=== PATIENT | male | born 1975 | race Two or more races ===

== ENCOUNTER 2017-08-25 21:30 | Inpatient (IN) | payer OTHER ==
[~2017-08-25] VITALS: Ht 190.5 cm; Wt 110.5 kg
[2017-08-25 21:57] LABS: HEMATOCRIT 39.2 % (38.0-50.0); HEMOGLOBIN 14.3 G/DL (12.5-16.6); MCH 31.1 PG (29.0-34.0); MCHC 36.5 G/DL (30.0-36.0); MCV 85.2 FL (86-99); PLATELET COUNT 326 K/uL (156-360); RBC DIS.WIDTH-CV 12.1 % (11.8-14.6); RBC DIS.WIDTH-SD 37.7 % (39-53); WHITE BLOOD COUNT 15.3 K/uL (4.1-10.2)
[2017-08-25 22:07] LABS: ALBUMIN 4.2 g/dL (3.2-4.8); CHLORIDE 108 mEq/L (99-109); POTASSIUM 3.7 mEq/L (3.7-5.4); SODIUM 141 mEq/L (136-147)
[2017-08-25 22:10] LABS: GLUCOSE 154 mg/dL (70-99); TOTAL PROTEIN 7.5 g/dL (6.4-8.3)
[2017-08-25 22:11] LABS: TOTAL BILIRUBIN 0.2 mg/dL (0.0-1.0)
[2017-08-25 22:13] LABS: ALKALINE PHOSPHATASE 88 IU/L (3-129); CREATININE 1.1 mg/dL (0.6-1.3); GFR ESTIMATE (CALCULATED) > 59 mL/min/ (58.99-99999)
[2017-08-25 22:14] LABS: UREA NITROGEN (BUN) 14 mg/dL (9-23)
[2017-08-25 22:15] LABS: AST (GOT) 18 IU/L (2-34); DIRECT BILIRUBIN 0.1 mg/dL (0.0-0.3)
[2017-08-25 22:16] LABS: ALT (GPT) 31 IU/L (3-49)
[2017-08-25 22:17] LABS: LIPASE 109 U/L (1.0-51.0)
[2017-08-25] MEDS ORDERED: DEPAKOTE500 MG PO (23:25)
[2017-08-25] MEDS ORDERED: BACLOFEN10 MG PO (23:27)
[2017-08-25] MEDS ORDERED: NEURONTIN600 MG PO (23:28)
[2017-08-26 01:31] LABS: HEMATOCRIT 39.2 % (38.0-50.0); MCV 87.1 FL (86-99)
[2017-08-26 02:42] VITALS: BP 129/84
[2017-08-26 06:47] LABS: ALBUMIN 4.1 G/DL (3.2-4.8); ALKALINE PHOSPHATASE 51 IU/L (3-129); ALT (GPT) 22 IU/L (3-49); AST (GOT) 15 IU/L (2-34); CHLORIDE 110 MEQ/L (99-109); CREATININE 0.9 MG/DL (0.6-1.3); DIRECT BILIRUBIN 0.1 mg/dL (0.0-0.3); GFR ESTIMATE (CALCULATED) > 59 mL/min/ (58.99-99999); POTASSIUM 4.2 MEQ/L (3.7-5.4); SODIUM 139 MEQ/L (136-147); TOTAL BILIRUBIN 0.4 MG/DL (0.0-1.0); TOTAL PROTEIN 6.7 G/DL (6.4-8.3); UREA NITROGEN (BUN) 11 mg/dL (9-23)
[2017-08-26 06:50] LABS: GLUCOSE 100 mg/dL (70-99)
[2017-08-26 07:34] LABS: HEMATOCRIT 41.2 % (38.0-50.0); HEMOGLOBIN 14.5 G/DL (12.5-16.6); MCH 30.7 PG (29.0-34.0); MCHC 35.2 G/DL (30.0-36.0); MCV 87.3 FL (86-99); PLATELET COUNT 290 K/uL (156-360); RBC DIS.WIDTH-CV 12.3 % (11.8-14.6); RBC DIS.WIDTH-SD 39.5 % (39-53); RED BLOOD COUNT 4.72 M/uL (4.00-5.50); WHITE BLOOD COUNT 17.1 K/uL (4.1-10.2)
[2017-08-26 07:50] VITALS: BP 128/75
[2017-08-26 10:33] LABS: LIPASE 65 U/L (1.0-51.0)
[2017-08-26 12:02] VITALS: BP 136/77
[2017-08-26 12:13] LABS: HEMOGLOBIN 13.5 G/DL (12.5-16.6); MCV 88.2 FL (86-99)
[2017-08-26 16:06] VITALS: BP 146/84
[2017-08-26 16:35] LABS: APPEARANCE CLEAR ((CLEAR)); BILIRUBIN NEGATIVE; BLOOD NEGATIVE; COLOR YELLOW ((YELLOW)); GLUCOSE (STRIP) NEGATIVE; KETONES NEGATIVE; LEUKOCYTES NEGATIVE; NITRITE NEGATIVE; PROTEIN (STRIP) NEGATIVE; SPECIFIC GRAVITY 1.029 (1.000-1.030); UCUL ADDED? NO; UROBILINOGEN 0.2 MG/DL (0.2-1.0)
[2017-08-26 18:17] LABS: HEMATOCRIT 37.7 % (38.0-50.0); MCV 87.9 FL (86-99)
[2017-08-26 19:41] VITALS: BP 126/62
[2017-08-27] VITALS (7 sets, daily range): BP systolic 136–191; BP diastolic 81–95
[2017-08-27 07:37] LABS: BASOPHIL (%) 0.4 % (0-1); EOSINOPHIL COUNT 0.3 K/uL (0-0.3); HEMATOCRIT 39.8 % (38.0-50.0); IMMATURE GRANULOCYTE (%) 0.2 % (0.0-0.7); LYMPHOCYTE (%) 37.3 % (15-42); LYMPHOCYTE COUNT 3.4 K/uL (1.0-2.8); MCH 30.8 PG (29.0-34.0); MCHC 35.2 G/DL (30.0-36.0); MCV 87.5 FL (86-99); MONOCYTE (%) 8.1 % (3-12); MONOCYTE COUNT 0.7 K/uL (0-0.8); NEUTROPHIL COUNT 4.7 K/uL (1.8-6.4); PLATELET COUNT 245 K/uL (156-360); RBC DIS.WIDTH-CV 12.5 % (11.8-14.6); RBC DIS.WIDTH-SD 39.8 % (39-53); RED BLOOD COUNT 4.55 M/uL (4.00-5.50); WHITE BLOOD COUNT 9.2 K/uL (4.1-10.2)
[2017-08-27 07:42] LABS: ALBUMIN 4.1 G/DL (3.2-4.8); ALKALINE PHOSPHATASE 45 IU/L (3-129); ALT (GPT) 20 IU/L (3-49); AST (GOT) 16 IU/L (2-34); CHLORIDE 106 MEQ/L (99-109); CREATININE 0.7 MG/DL (0.6-1.3); DIRECT BILIRUBIN 0.1 mg/dL (0.0-0.3); GFR ESTIMATE (CALCULATED) > 59 mL/min/ (58.99-99999); GLUCOSE 136 mg/dL (70-99); LIPASE 60 U/L (1.0-51.0); POTASSIUM 3.8 MEQ/L (3.7-5.4); SODIUM 139 MEQ/L (136-147); TOTAL PROTEIN 6.8 G/DL (6.4-8.3); UREA NITROGEN (BUN) 4 mg/dL (9-23)
[2017-08-27 07:44] LABS: TOTAL BILIRUBIN 0.6 MG/DL (0.0-1.0)
[2017-08-27] MEDS ORDERED: DEPAKOTE250 MG PO (11:37)
[2017-08-27] MEDS ORDERED: INDERAL10 MG PO (11:42)
[2017-08-28] VITALS: BP 147/88
[2017-08-28 04:00] VITALS: BP 132/79
[2017-08-28 06:42] LABS: HEMATOCRIT 39.3 % (38.0-50.0); HEMOGLOBIN 13.6 G/DL (12.5-16.6); MCH 30.2 PG (29.0-34.0); MCHC 34.6 G/DL (30.0-36.0); MCV 87.3 FL (86-99); PLATELET COUNT 286 K/uL (156-360); RBC DIS.WIDTH-CV 12.1 % (11.8-14.6); RBC DIS.WIDTH-SD 38.9 % (39-53)
[2017-08-28 07:01] LABS: CHLORIDE 104 MEQ/L (99-109); POTASSIUM 3.8 MEQ/L (3.7-5.4); SODIUM 141 MEQ/L (136-147)
[2017-08-28 07:24] LABS: ALBUMIN 4.1 G/DL (3.2-4.8); ALKALINE PHOSPHATASE 45 IU/L (3-129); ALT (GPT) 22 IU/L (3-49); AST (GOT) 17 IU/L (2-34); CREATININE 0.6 MG/DL (0.6-1.3); GFR ESTIMATE (CALCULATED) > 59 mL/min/ (58.99-99999); TOTAL BILIRUBIN 0.6 MG/DL (0.0-1.0); UREA NITROGEN (BUN) 5 mg/dL (9-23)
[2017-08-28 07:26] LABS: GLUCOSE 93 mg/dL (70-99)
[2017-08-28 07:35] VITALS: BP 145/82
[2017-08-28 09:20] VITALS: BP 145/82
[2017-08-28] MEDS ORDERED: KEPPRA750 MG PO (13:21)
[2017-08-28] MEDS ORDERED: TUMS500 MG PO (13:21)
[2017-08-28] MEDS ORDERED: PROTONIX40 MG PO ×2 (13:21→13:29)
== END 2017-08-28 14:21 | DRG 378 ==
LOC: EME → EDBD 21:30 → EDOF 08-26 01:28 → 5SOUTH 08-26 01:28 → ENRESERV 08-26 01:34 → 5SOUTH 08-26 02:26
PROVIDERS: Emergency Medicine; Hospitalist; Internal Medicine Gastroenterology
PROC: 0DJ08ZZ Inspection of Upper Intestinal Tract, Via Natural or Artificial Opening Endoscopic (ICD-10-PCS; principal; 2017-08-26)
PROC: 0DC68ZZ Extirpation of Matter from Stomach, Via Natural or Artificial Opening Endoscopic (ICD-10-PCS; 2017-08-27)
DX: K92.0 Hematemesis (principal); K25.4 Chronic or unspecified gastric ulcer with hemorrhage; T18.2XXA Foreign body in stomach, initial encounter; F43.10 Post-traumatic stress disorder, unspecified; I47.1 Supraventricular tachycardia; G40.919 Epilepsy, unspecified, intractable, without status epilepticus; F43.20 Adjustment disorder, unspecified; K76.0 Fatty (change of) liver, not elsewhere classified; S01.512A Laceration without foreign body of oral cavity, initial encounter; D72.829 Elevated white blood cell count, unspecified; G89.29 Other chronic pain; M54.9 Dorsalgia, unspecified; Z80.0 Family history of malignant neoplasm of digestive organs; Z86.010 Personal history of colon polyps; E66.9 Obesity, unspecified; Z68.30 Body mass index [BMI] 30.0-30.9, adult; Z87.11 Personal history of peptic ulcer disease; Z86.73 Personal history of transient ischemic attack (TIA), and cerebral infarction without residual deficits; Z79.899 Other long term (current) drug therapy; Z88.6 Allergy status to analgesic agent
CPT/HCPCS: 71045; 71260; 74018; 74177; 76705; 80048; 80053; 80076; 81003; 82140; 82248; 82272; 83605; 83690; 85014; 85018; 85025; 85027; 85610; 86850; 86900; 86901; 88300; 95819; 99281; 99285; C9113; J0330; J1170; J1953; J2060; J2250; J2765; J3010; J7030; J7050

== ENCOUNTER 2017-08-28 18:13 | Inpatient (IN) | payer OTHER ==
[~2017-08-28] VITALS: Ht 188 cm; Wt 106.8 kg
[~2017-08-28 18:13] MED LIST: BACLOFEN10 MG PO; DEPAKOTE250 MG PO; DEPAKOTE500 MG PO; INDERAL10 MG PO; KEPPRA750 MG PO; NEURONTIN600 MG PO; PROTONIX40 MG PO; TUMS500 MG PO
[2017-08-28 18:55] LABS: BASOPHIL (%) 0.6 % (0-1); BASOPHIL COUNT 0.1 K/uL (0-0.1); EOSINOPHIL (%) 0.5 % (0-5); EOSINOPHIL COUNT 0.1 K/uL (0-0.3); HEMATOCRIT 41.1 % (38.0-50.0); HEMOGLOBIN 14.6 G/DL (12.5-16.6); IMMATURE GRANULOCYTE (%) 0.3 % (0.0-0.7); LYMPHOCYTE (%) 18.3 % (15-42); LYMPHOCYTE COUNT 2.2 K/uL (1.0-2.8); MCH 31.1 PG (29.0-34.0); MCHC 35.5 G/DL (30.0-36.0); MCV 87.6 FL (86-99); MONOCYTE (%) 8.9 % (3-12); MONOCYTE COUNT 1.1 K/uL (0-0.8); NEUTROPHIL (%) 71.4 % (45-76); NEUTROPHIL COUNT 8.8 K/uL (1.8-6.4); PLATELET COUNT 311 K/uL (156-360); RED BLOOD COUNT 4.69 M/uL (4.00-5.50); WHITE BLOOD COUNT 12.3 K/uL (4.1-10.2)
[2017-08-28 20:42] LABS: AMYLASE 56 IU/L (1-118); CHLORIDE 104 MEQ/L (99-109); POTASSIUM 3.9 MEQ/L (3.7-5.4); SODIUM 139 MEQ/L (136-147)
[2017-08-28 21:11] LABS: CREATININE 0.9 MG/DL (0.6-1.3); GFR ESTIMATE (CALCULATED) > 59 mL/min/ (58.99-99999); GLUCOSE 123 mg/dL (70-99); LIPASE 45 U/L (1.0-51.0); UREA NITROGEN (BUN) 9 mg/dL (9-23)
[2017-08-28 21:56] LABS: SERUM ETHYL ALCOHOL < 10 mg/dL
[2017-08-28 23:46] LABS: APPEARANCE CLEAR ((CLEAR)); BILIRUBIN NEGATIVE; BLOOD NEGATIVE; COLOR YELLOW ((YELLOW)); GLUCOSE (STRIP) NEGATIVE; KETONES NEGATIVE; LEUKOCYTES NEGATIVE; NITRITE NEGATIVE; PROTEIN (STRIP) 30; SPECIFIC GRAVITY > 1.060 (1.000-1.030); UCUL ADDED? NO; UROBILINOGEN 0.2 MG/DL (0.2-1.0)
[2017-08-28 23:59] LABS: AMPHETAMINE NEGATIVE (500 ng/mL); BARBITURATES NEGATIVE (200 ng/mL); BENZODIAZEPINES PRESUMPTIVE POSITIVE (150 ng/mL); BUPRENORPHINE NEGATIVE (10 ng/mL); COCAINE NEGATIVE (150 ng/mL); METHADONE NEGATIVE (200 ng/mL); METHAMPHETAMINE NEGATIVE (500 ng/mL); OPIATES (MORPHINE) PRESUMPTIVE POSITIVE (100 ng/mL); OXYCODONE NEGATIVE (100 ng/mL); PHENCYCLIDINE NEGATIVE (25 ng/mL); PROPOXYPHENE NEGATIVE (300 ng/mL); THC CANNABINOIDS NEGATIVE (50 ng/mL); TRICYCLIC ANTIDEPRESSANTS NEGATIVE (300 ng/mL)
[2017-08-29] VITALS (24 sets, daily range): BP systolic 111–152; BP diastolic 60–909
[2017-08-29 01:38] LABS: BENZODIAZEPINES, URINE SCREEN Negative (200 ng/mL)
[2017-08-29 06:06] LABS: HEMATOCRIT 37.1 % (38.0-50.0); MCH 30.9 PG (29.0-34.0); MCV 88.1 FL (86-99); PLATELET COUNT 259 K/uL (156-360); RBC DIS.WIDTH-CV 12.4 % (11.8-14.6); RBC DIS.WIDTH-SD 39.4 % (39-53); RED BLOOD COUNT 4.21 M/uL (4.00-5.50); WHITE BLOOD COUNT 12.9 K/uL (4.1-10.2)
[2017-08-29 06:11] LABS: ALBUMIN 3.9 G/DL (3.2-4.8); ALKALINE PHOSPHATASE 45 IU/L (3-129); ALT (GPT) 21 IU/L (3-49); AST (GOT) 20 IU/L (2-34); CHLORIDE 105 MEQ/L (99-109); CREATININE 0.7 MG/DL (0.6-1.3); GFR ESTIMATE (CALCULATED) > 59 mL/min/ (58.99-99999); GLUCOSE 109 mg/dL (70-99); POTASSIUM 3.6 MEQ/L (3.7-5.4); SODIUM 140 MEQ/L (136-147); TOTAL BILIRUBIN 0.7 MG/DL (0.0-1.0); TOTAL PROTEIN 6.6 G/DL (6.4-8.3); UREA NITROGEN (BUN) 11 mg/dL (9-23)
[2017-08-30] VITALS (11 sets, daily range): BP systolic 98–171; BP diastolic 53–98
[2017-08-30 04:41] LABS: BASOPHIL (%) 0.5 % (0-1); BASOPHIL COUNT 0.1 K/uL (0-0.1); EOSINOPHIL (%) 1.5 % (0-5); EOSINOPHIL COUNT 0.2 K/uL (0-0.3); HEMATOCRIT 36.6 % (38.0-50.0); HEMOGLOBIN 12.8 G/DL (12.5-16.6); IMMATURE GRANULOCYTE (%) 0.3 % (0.0-0.7); LYMPHOCYTE (%) 20.9 % (15-42); LYMPHOCYTE COUNT 2.7 K/uL (1.0-2.8); MCH 30.9 PG (29.0-34.0); MCV 88.4 FL (86-99); MONOCYTE (%) 11.2 % (3-12); MONOCYTE COUNT 1.5 K/uL (0-0.8); NEUTROPHIL (%) 65.6 % (45-76); NEUTROPHIL COUNT 8.5 K/uL (1.8-6.4); PLATELET COUNT 249 K/uL (156-360); RBC DIS.WIDTH-SD 38.9 % (39-53); RED BLOOD COUNT 4.14 M/uL (4.00-5.50)
[2017-08-30 04:53] LABS: CHLORIDE 108 mEq/L (99-109); POTASSIUM 3.6 mEq/L (3.7-5.4); SODIUM 143 mEq/L (136-147)
[2017-08-30 04:54] LABS: MAGNESIUM 2.1 mg/dL (1.3-2.7)
[2017-08-30 04:55] LABS: GLUCOSE 106 mg/dL (70-99)
[2017-08-30 04:59] LABS: CREATININE 0.7 mg/dL (0.6-1.3); GFR ESTIMATE (CALCULATED) > 59 mL/min/ (58.99-99999); PHOSPHORUS 4.5 mg/dL (2.5-4.9)
[2017-08-30 05:00] LABS: UREA NITROGEN (BUN) 9 mg/dL (9-23)
[2017-08-30 21:38] LABS: CK-MB 0.5 ng/mL (0.0-4.9)
[2017-08-30 21:44] LABS: ALBUMIN 4.2 G/DL (3.2-4.8); ALKALINE PHOSPHATASE 44 IU/L (3-129); ALT (GPT) 18 IU/L (3-49); AST (GOT) 14 IU/L (2-34); CKMB RELATIVE INDEX 0.5 (0.0-3.9); CREATINE KINASE 93 IU/L (1-294); DIRECT BILIRUBIN 0.2 mg/dL (0.0-0.3); TOTAL CK 93 IU/L (1-294); TOTAL PROTEIN 7.5 G/DL (6.4-8.3)
[2017-08-31] VITALS (7 sets, daily range): BP systolic 106–172; BP diastolic 65–102
[2017-08-31 15:16] LABS: CREATINE KINASE 71 IU/L (1-294); TOTAL CK 71 IU/L (1-294)
[2017-08-31 15:38] LABS: CK-MB 0.4 ng/mL (0.0-4.9); CKMB RELATIVE INDEX 0.6 (0.0-3.9)
== END 2017-09-01 00:13 | DRG 101 ==
LOC: TRA 18:13 → 5SOUTH 20:02 → 4WEST 20:02 → EDOF 20:02 → ENRESERV 20:06 → 4WEST 08-29 02:46 → ENRESERV 08-30 14:05 → 5SOUTH 08-30 16:08
PROVIDERS: Emergency Medicine; Hospitalist; Specialist; Student in an Organized Health Care Education/Training Program
DX: G40.89 Other seizures (principal); K92.0 Hematemesis; F43.10 Post-traumatic stress disorder, unspecified; J44.9 Chronic obstructive pulmonary disease, unspecified; F10.10 Alcohol abuse, uncomplicated; F31.9 Bipolar disorder, unspecified; R45.851 Suicidal ideations; K21.9 Gastro-esophageal reflux disease without esophagitis; G89.29 Other chronic pain; M54.9 Dorsalgia, unspecified; R60.9 Edema, unspecified; F43.20 Adjustment disorder, unspecified; F60.2 Antisocial personality disorder; F12.10 Cannabis abuse, uncomplicated; R04.0 Epistaxis; Z79.899 Other long term (current) drug therapy; Z91.5 Personal history of self-harm; Z65.3 Problems related to other legal circumstances; Z87.891 Personal history of nicotine dependence; X83.8XXA Intentional self-harm by other specified means, initial encounter; Y93.9 Activity, unspecified; Y92.149 Unspecified place in prison as the place of occurrence of the external cause
CPT/HCPCS: 70450; 70498; 71045; 71260; 72126; 72141; 80047; 80048; 80053; 80076; 80164; 81003; 82140; 82150; 82550; 82553; 82948; 83605; 83690; 83735; 84100; 84999; 85025; 85027; 86850; 86900; 86901; 87070; 87205; 87641; 94002; 94003; 94760; 94799; 95819; 99281; 99285; C1753; G0480; J1650; J1953; J2060; J2704; J3010; J7050; J7120; S0028